=== PATIENT | male | born 1990 | race African-American/Black ===

== ENCOUNTER 2022-08-25 15:17 | Emergency (ER) | payer SELFPAY ==
[~2022-08-25] VITALS: Ht 188 cm; Wt 83.9 kg
[2022-08-25 15:26] VITALS: BP_SYST 149
--- NOTE | 2022-08-25 17:05 | NUR ---
DR NATH OUT TO TRIAGE ROOM TO SPEAK WITH PT, UNABLE TO LOCATE PT IN WAITING ROOM
--- NOTE | 2022-08-25 17:10 | NUR ---
UNABLE TO LOCATE PT IN WAITING ROOM
[2022-08-25 17:15] VITALS: BP_SYST 149
--- NOTE | 2022-08-25 17:15 | NUR ---
PT CALLED FOR EVALUATION, UNABLE TO LOCATE PT. PT IS LEFT WITHOUT BEING SEEN
== END 2022-08-25 17:15 | disposition left against medical advice (07) ==
LOC: SED 15:17
DX: R50.9 Fever, unspecified (principal); R11.2 Nausea with vomiting, unspecified; Z53.21 Procedure and treatment not carried out due to patient leaving prior to being seen by health care provider

== ENCOUNTER 2024-03-10 01:21 | Emergency (ER) | payer OTHER ==
[~2024-03-10] VITALS: Ht 188 cm; Wt 77.1 kg
[2024-03-10 01:36] VITALS: BP_SYST 121; PULSE 80; RESP 18; TEMP 98; O2SAT 96
[2024-03-10 02:00] LABS: BASOPHILS # (AUTO) 0.4 K/uL (0.0-0.2); BASOPHILS % (AUTO) 3.9 % (0.0-2.0); EOSINOPHILS % (AUTO) 0.1 % (0.0-4.0); HEMATOCRIT 46.9 % (36-54); HEMOGLOBIN 16.4 g/dL (14.0-18.0); LYMPHOCYTES # (AUTO) 0.7 K/uL (1.0-5.5); LYMPHOCYTES % (AUTO) 7.1 % (20.5-51.5); MEAN CORPUSCULAR HEMOGLOBIN 32 pg (27-31); MEAN CORPUSCULAR HGB CONC 35 % (32-36); MEAN CORPUSCULAR VOLUME 91 fL (79.0-98.0); MONOCYTES # (AUTO) 0.3 K/uL (0.0-1.0); MONOCYTES % (AUTO) 2.6 % (1.7-9.3); NEUTROPHILS # (AUTO) 8.8 K/uL (1.8-7.7); NEUTROPHILS % (AUTO) 86.3 % (40.0-70.0); PLATELET COUNT (AUTO) 320 K/uL (130-430); RED BLOOD CELL COUNT(AUTO) 5.14 MIL/uL (4.2-6.2); RED CELL DISTRIBUTION WIDTH 14.9 % (9.0-15.0); WHITE BLOOD COUNT (AUTO) 10.2 K/uL (4.8-10.8)
[2024-03-10] MEDS: ONDANSETRON HCL 4 MG/2 ML VIAL IVP ONE (02:01)
[2024-03-10] MEDS: KETOROLAC TROMETHAMINE 30 MG VIAL IVP ONE (02:04)
[2024-03-10] MEDS: NACL 0.9% 1,000 ML IV ONE ×2 (02:05→02:58)
[2024-03-10 02:26] LABS: ALBUMIN 5.2 g/dL (3.4-4.8); BILIRUBIN,DIRECT 0.2 mg/dL (0.0-0.3); CALCIUM 11.2 mg/dL (8.4-11.0); CREATININE 2.25 mg/dL (0.55-1.30); POTASSIUM 4.4 mmol/L (3.5-5.1); TOTAL BILIRUBIN 0.8 mg/dL (0.0-1.0)
[2024-03-10] MEDS: METOCLOPRAMIDE HCL 10 MG/2 ML VIAL IVP ONE (02:33)
[2024-03-10 03:09] LABS: BILIRUBIN,URINE 1+ (NEGATIVE); BLOOD, URINE NEGATIVE (NEGATIVE); CLARITY/URINE CLEAR (CLEAR); COLOR,URINE YELLOW (YELLOW); GLUCOSE,URINE NEGATIVE (NEGATIVE); KETONES,URINE TRACE (NEGATIVE); LEUKOCYTE ESTERASE ,URINE NEGATIVE (NEGATIVE); NITRITE, URINE NEGATIVE (NEGATIVE); PH,URINE 8.5 (5.0-8.0); PROTEIN URINE 1+ (NEGATIVE); UROBILINOGEN,URINE 0.2 (0.2-1.0)
[2024-03-10] MEDS: PANTOPRAZOLE SODIUM 40 MG/VIAL (PROTONIX) IVP ONE (03:21)
[2024-03-10 03:31] LABS: BARBITURATE, URINE NEGATIVE (NEG <=200); BENZODIAZEPINE, URINE NEGATIVE (NEG <=150); CANNABINOID, URINE POSITIVE (NEG <=50); COCAINE, URINE NEGATIVE (NEG <=150); METHAMPHETAMINES SCREEN,URINE NEGATIVE (NEG <=500); OPIATE, URINE NEGATIVE (NEG <=100); PHENCYCLIDINE SCREEN,URINE NEGATIVE (NEG <=25); UR TRICYCLIC ANTIDEPRESSANTS NEGATIVE (NEG <=300); URINE AMPHETAMINE NEGATIVE (NEG <=500); URINE METHADONE NEGATIVE (NEG <=200); URINE OXYCODONE SCREEN NEGATIVE (NEG <=100)
[2024-03-10 03:48] LABS: BACTERIA,URINE None Seen /HPF (None Seen)
[2024-03-10 03:49] LABS: CKMB RELATIVE INDEX 0.9 (0.0-2.9)
[2024-03-10] MEDS: MORPHINE 4 MG INJ. 4 MG/ML VIAL IVP ONE (06:00)
[2024-03-10 11:02] VITALS: BP_SYST 137; PULSE 54; RESP 15; TEMP 98.6; O2SAT 99
== END 2024-03-10 11:05 | disposition short-term general hospital (02) ==
LOC: SED 01:21
DX: N17.8 Other acute kidney failure (principal); R10.13 Epigastric pain; K92.0 Hematemesis; F17.200 Nicotine dependence, unspecified, uncomplicated
CPT/HCPCS: 99285; 74176; 96374; 96375; 96361; 80307; 80076; 80048; 81001; 82550; 82553; 83690; 85025; 36415; J1885; J2765; J2405; J2470; J2270; J7030; 81000; 81015